=== PATIENT | male | born 1985 | race Native Hawaiian/Other Pacific Islander ===

== ENCOUNTER 2018-01-28 14:06 | Emergency (ER) | payer BC, OTHER ==
[2018-01-28 14:10] VITALS: BMI 26.4
--- NOTE | 2018-01-28 14:38 | C.PDOC ---
History Of Present Illness 32 y/o M c no PMHx p/w foreign body in throat. Patient states last night, he ate a piece of méndez that he thinks became lodged in this throat. He states that since then, any food or water has been unable to go back down. He states this has happened to him a number of times before but he has always been able to violently cough it out after a few hours. He denies any trouble breathing or speaking. Went to [facility] today who sent patient to ED for CT. Reportedly was unable to visualize any object on direct scope. Time Seen by Provider: 01/28/18 14:29 Chief Complaint (Nursing): Foreign Body Past Medical History Vital Signs: Last Vital Signs Temp 98.0 F 01/28/18 14:10 Pulse 80 01/28/18 14:10 Resp 18 01/28/18 14:10 BP 158/80 H 01/28/18 14:10 Pulse Ox 99 01/28/18 17:01 Family History: States: No Known Family Hx - Social History Hx Alcohol Use: No Hx Substance Use: No - Immunization History Hx Tetanus Toxoid Vaccination: No Hx Influenza Vaccination: No Hx Pneumococcal Vaccination: No Review Of Systems Except As Marked, All Systems Reviewed And Found Negative. Constitutional: Negative for: Fever Respiratory: Negative for: Shortness of Breath Physical Exam - Physical Exam Additional Physical Exam Comments: Gen: NAD Head: NC Eyes: No scleral icterus ENT: MMM Neck: Supple CV: Regular rate Resp: No stridor Skin: No rash Neuro: Alert, no focal deficit Extremities: No swelling ED Course And Treatment - Laboratory Results Result Diagrams: 01/28/18 17:45 01/28/18 17:55 O2 Sat by Pulse Oximetry: 99 Medical Decision Making Medical Decision Making: IMPRESSION: 1. No radiopaque foreign body in the oropharynx, hypopharynx or visualized esophagus. 2. Few midline round calcifications in the posterior nasopharynx/adenoids are likely related to calcification in inflamed Tornwaldt cyst. The possibility of radiopaque foreign body is less likely in the nasopharynx. Failed PO challenge. Glucagon administered, failed PO challenge again. GI consulted, Dr. Rice recommends admission to hospitalist service for endoscopy. Disposition Discussed With : Nikolai Dougherty Doctor Will See Patient In The: Hospital - Disposition Disposition: HOSPITALIZED Disposition Time: 18:50 Condition: STABLE Forms: [employer] ([place]) - Clinical Impression Clinical Impression: Esophageal foreign body
--- NOTE | 2018-01-28 16:30 | CT ---
PROCEDURE: CT NECK WITHOUT CONTRAST HISTORY: swallowed méndez, evaluate for esophageal FB COMPARISON: None. TECHNIQUE: CT of the neck without intravenous contrast. Coronal and sagittal reformats generated. Radiation dose: DLP 525.44 mGy-cm This CT exam was performed using one or more of the following dose reduction techniques: Automated exposure control, adjustment of the mA and/or kV according to patient size, and/or use of iterative reconstruction technique. FINDINGS: NASOPHARYNX: There a few round calcifications in the midline posterior nasopharynx/ adenoids. SUPRAHYOID NECK: The oropharynx, oral cavity, parapharyngeal space and retropharyngeal space are grossly normal in appearance. INFRAHYOID NECK: There is no bulky mass in the larynx, hypopharynx, and supraglottic space. Vocal cords intact. MASS: None. GLANDS: Parotid and submandibular glands unremarkable. Normal size thyroid gland, without nodule. LYMPH NODES: Normal. No lymphadenopathy. CERVICAL SPINE: No fracture or focal lesion. OTHER FINDINGS: None. IMPRESSION: 1. No radiopaque foreign body in the oropharynx, hypopharynx or visualized esophagus. 2. Few midline round calcifications in the posterior nasopharynx/adenoids are likely related to calcification in inflamed Tornwaldt cyst. The possibility of radiopaque foreign body is less likely in the nasopharynx.
[2018-01-28] MEDS ORDERED: Glucagon Recombinant 1 mg Inj IV STA (17:22)
[2018-01-28] MEDS ORDERED: Glucagon Recombinant 1 mg Inj ONE (17:37)
[2018-01-28 17:40] LABS: BASO # 0.1 K/uL (0.0-0.2); BASO % 0.4 % (0.0-2.0); EOS # 0.1 K/uL (0.0-0.7); EOS % 0.6 % (0.0-4.0); HEMOGLOBIN 12.9 g/dL (12.0-18.0); LYMPH # 2.1 K/uL (1.0-4.3); LYMPH % 15.2 % (20.0-40.0); MEAN CELL VOLUME 64.7 fL (80.0-94.0); MEAN CORPUSCULAR HEMOGLOBIN 20.6 pg (27.0-31.0); MEAN CORPUSCULAR HGB CONC 31.9 g/dL (33.0-37.0); MEAN PLATELET VOLUME 9.3 fL (7.2-11.7); MONO # 0.7 K/uL (0.0-0.8); MONO % 4.9 % (0.0-10.0); NEUT # 11.1 K/uL (1.8-7.0); NEUT % 78.9 % (50.0-75.0); NRBC % 0.2 % (0.0-2.0); RBC 6.28 Mil/uL (4.40-5.90); RED CELL DISTRIBUTION WIDTH 15.7 % (11.5-14.5)
[2018-01-28 18:06] LABS: ALB/GLOB RATIO 1.2 (1.0-2.1); ALT/SGPT 13 U/L (21-72); AST/SGOT 35 U/L (17-59); BLOOD UREA NITROGEN 19 mg/dL (9-20); CALCIUM 9.8 mg/dl (8.6-10.4); GFR AFRICAN-AMERICAN > 60; GFR NON-AFRICAN AMERICAN > 60
[2018-01-28] MEDS ORDERED: Sodium Chloride 0.9% 1,000 ML IV STA (19:03)
[2018-01-28 19:50] VITALS: BP 119/75; PULSE 68; RESP 16; TEMP 98.6; O2SAT 98
== END 2018-01-28 19:52 | disposition left against medical advice (07) ==
LOC: C.ER 14:06
DX: T18.128A Food in esophagus causing other injury, initial encounter (principal); X58.XXXA Exposure to other specified factors, initial encounter
CPT/HCPCS: 70490; 80053; 85025; 96361; 96374; 96375; 99283; J1610; J2060; J7040